=== PATIENT | female | born 1990 | race American Indian/Alaskan Native ===

== ENCOUNTER 2017-02-23 15:52 | Emergency (ER) | payer SELFPAY ==
[2017-02-23 16:48] LABS: Basophils % (Auto) 0.3 % (0.0-1.8); Eosinophils % (Auto) 2.4 % (0.0-4.3); Hematocrit 44.5 % (30.3-42.9); Hemoglobin 14.6 gm/dl (10.1-14.3); Mean Corpuscular HGB Conc 33 % (30-34); Mean Corpuscular Hemoglobin 29 pg (28-32); Mean Corpuscular Volume 89 fl (79-97); Platelet Count 237 K/mm3 (140-440); Red Blood Count 4.98 M/mm3 (3.65-5.03); Red Cell Distribution Width 13.4 % (13.2-15.2); White Blood Count 9.9 K/mm3 (4.5-11.0)
[2017-02-23 17:20] LABS: Bilirubin,Urine NEG (Negative); Blood,Urine NEG (Negative); Ketones,Urine NEG (Negative); Leukocyte Esterase,Urine TR (Negative); Mucus,Urine FEW /HPF; Nitrite,Urine NEG (Negative); Protein,Urine <15 mg/dL mg/dL (Negative); Urobilinogen,Urine < 2.0 mg/dL (<2.0)
[2017-02-23 17:30] LABS: Alanine Aminotransferase 10 units/L (7-56); Albumin 4.1 g/dL (3.9-5); Albumin/Globulin Ratio 1.8 %; Alkaline Phosphatase 58 units/L (35-129); Anion Gap 15 mmol/L; BUN/Creatinine Ratio 13; Blood Urea Nitrogen 9 mg/dL (7-17); Carbon Dioxide 26 mmol/L (22-30); Chloride 100.9 mmol/L (98-107); Glucose 105 mg/dL (65-100); Lipase 17 units/L (13-60); Potassium 4.2 mmol/L (3.6-5.0); Sodium 138 mmol/L (137-145); Total Protein 6.4 g/dL (6.3-8.2)
--- NOTE | 2017-02-23 22:45 | Emergency Department Report ---
HPI - General Chief Complaint: Abdominal Pain Time Seen by Provider: 02/23/17 22:34 - HPI HPI: Room 22 The patient is a 26-year-old female presenting with a chief complaint lower abdominal pain. The patient states she was diagnosed with ovarian cysts July 2016. She states little over a month ago the same pain returned which is lower abdominal pain that has been intermittent. Patient denies dysuria, hematuria or vaginal discharge. Patient denies fever. The patient states her last cycle occurred 01/22/2017 and was within normal limits. Location: Pelvis Duration: Intermittent for a little over 1 month Quality: Pain Severity: 06/09 Modifying factors: [see above] Context: [see above] Mode of transportation: [not driving] ED Past Medical Hx - Past Medical History Previous Medical History?: No Additional medical history: cyst on ovary - Surgical History Past Surgical History?: No - Family History Family history: no significant - Social History Smoking Status: Never Smoker Substance Use Type: None (denies illicit drug use), Alcohol (occasional) - Medications Home Medications: Home Medications Medication Instructions Recorded Confirmed Last Taken Type Ibuprofen [Motrin 800 MG tab] 800 mg PO Q8HR PRN #20 tablet 02/23/17 Unknown Rx traMADol [Ultram] 50 mg PO Q6HR PRN #14 tablet 02/23/17 Unknown Rx ED Review of Systems ROS: Stated complaint: ABDOMINAL PAIN Other details as noted in HPI Constitutional: denies: fever Genitourinary: denies: dysuria, hematuria, discharge, abnormal menses Musculoskeletal: myalgia Physical Exam - Physical Exam Vital Signs: Vital Signs 02/23/17 15:59 Temperature 97.8 F Pulse Rate 90 Respiratory 20 Rate Blood Pressure 115/70 O2 Sat by Pulse 100 Oximetry Physical Exam: GENERAL: The patient is well-developed well-nourished female lying on stretcher not appearing to be in acute distress. [] HEENT: Normocephalic. Atraumatic. Extraocular motions are intact. Patient has moist mucous membranes. NECK: Supple. Trachea midline CHEST/LUNGS: Clear to auscultation. There is no respiratory distress noted. HEART/CARDIOVASCULAR: Regular. There is no tachycardia. There is no gallop rub or murmur. ABDOMEN: Abdomen is soft, nontender. Patient has normal bowel sounds. There is no abdominal distention. SKIN: There is no rash. There is no edema. There is no diaphoresis. NEURO: The patient is awake, alert, and oriented. The patient is cooperative. The patient has normal speech MUSCULOSKELETAL: There is no evidence of acute injury. ED Course Vital Signs 02/23/17 15:59 Temperature 97.8 F Pulse Rate 90 Respiratory 20 Rate Blood Pressure 115/70 O2 Sat by Pulse 100 Oximetry ED Medical Decision Making - Lab Data Result diagrams: 02/23/17 16:08 02/23/17 16:08 Laboratory Tests 02/23/17 02/23/17 02/23/17 16:08 16:08 16:50 WBC 9.9 RBC 4.98 Hgb 14.6 H Hct 44.5 H MCV 89 MCH 29 MCHC 33 RDW 13.4 Plt Count 237 Lymph % (Auto) 35.6 H [place] % (Auto) 6.4 Eos % (Auto) 2.4 Baso % (Auto) 0.3 Lymph # 3.5 [place] # 0.6 Eos # 0.2 Baso # 0.0 Seg Neutrophils % 55.3 Seg Neutrophils # 5.5 Sodium 138 Potassium 4.2 Chloride 100.9 Carbon Dioxide 26 Anion Gap 15 BUN 9 Creatinine 0.7 Estimated GFR > 60 BUN/Creatinine Ratio 13 Glucose 105 H Calcium 9.0 Total Bilirubin 0.20 AST 17 ALT 10 Alkaline Phosphatase 58 Total Protein 6.4 Albumin 4.1 Albumin/Globulin Ratio 1.8 Lipase 17 Urine Color Yellow Urine Turbidity Clear Urine pH 7.0 Ur Specific [place] 1.025 Urine Protein <15 mg/dl Urine Glucose (UA) Neg Urine Ketones Neg Urine Blood Neg Urine Nitrite Neg Urine Bilirubin Neg Urine Urobilinogen < 2.0 Ur Leukocyte Esterase Tr Urine WBC (Auto) 1.0 Urine RBC (Auto) 1.0 U Epithel Cells (Auto) 5.0 Urine Mucus Few Urine HCG, Qual Negative - Differential Diagnosis ovarian cysts, endometriosis, UTI Critical care attestation.: If time is entered above; I have spent that time in minutes in the direct care of this critically ill patient, excluding procedure time. ED Disposition Clinical Impression: Abdominal pain Disposition: DC-01 TO HOME OR SELFCARE Is pt being admited?: No Does the pt Need Aspirin: No Condition: Stable Instructions: Abdominal Pain (ED) Additional Instructions: Return to the emergency department immediately should you develop worsening symptoms, fever, inability to tolerate food or liquid or any other concerns. Prescriptions: Ibuprofen [Motrin 800 MG tab] 800 mg PO Q8HR PRN #20 tablet PRN Reason: Pain traMADol [Ultram] 50 mg PO Q6HR PRN #14 tablet PRN Reason: Pain Referrals: EDIL BOWLES MD [Staff Physician] - 3-5 Days (Dr Bowles is an [employer]. Please follow up with him for further evaluation) [facility] [Outside] - 3-5 Days Time of Disposition: 22:44
[2017-02-23 23:00] VITALS: BP 117/62
== END 2017-02-23 23:02 | disposition home or self-care (01) ==
LOC: ED 15:52
DX: R10.30 Lower abdominal pain, unspecified (principal)
CPT/HCPCS: 36415; 80053; 81001; 81025; 83690; 85025; 99283